=== PATIENT | male | born 1960 | race Caucasian/White ===

== ENCOUNTER 2018-10-22 11:52 | Emergency (ER) | payer MEDICARE, OTHER ==
[~2018-10-22] VITALS: Ht 195.6 cm; Wt 99.8 kg
[~2018-10-22 11:52] MED LIST: TOPROL XL25 MG PO; XARELTO10 MG PO
[2018-10-22] MEDS ORDERED: ASPIR 8181 MG PO (12:27)
[2018-10-22] MEDS ORDERED: CO Q-1050 MG PO (12:27)
[2018-10-22] MEDS ORDERED: KEFLEX500 M1 PO (12:47)
[2018-10-22 13:15] VITALS: BP 122/83
== END 2018-10-22 13:15 | disposition home or self-care (01) ==
LOC: M.ERS 11:52
DX: S61.002A Unspecified open wound of left thumb without damage to nail, initial encounter (principal); I48.91 Unspecified atrial fibrillation; W23.1XXA Caught, crushed, jammed, or pinched between stationary objects, initial encounter; Y92.89 Other specified places as the place of occurrence of the external cause; Y93.89 Activity, other specified; Y99.8 Other external cause status